=== PATIENT | male | born 1975 | race Caucasian/White ===

== ENCOUNTER 2020-12-31 06:47 | Outpatient (CLI) | payer OTHER | END 2020-12-31 06:49 | disposition home or self-care (01) | LOC: LAB 06:47 | PROVIDERS: ATTEND Emergency Medicine Pediatric Emergency Medicine | DX: Z03.818 Encounter for observation for suspected exposure to other biological agents ruled out (principal) ==

== ENCOUNTER 2024-04-18 07:21 | Outpatient (CLI) | payer OTHER | END 2024-04-18 07:23 | disposition home or self-care (01) | LOC: NUCLEAR 07:21 | PROVIDERS: ATTEND Internal Medicine | DX: I73.9 Peripheral vascular disease, unspecified (principal) ==